=== PATIENT | female | born 1980 | race African-American/Black ===

== ENCOUNTER 2021-09-12 08:29 | Emergency (ER) | payer OTHER ==
[2021-09-12] MEDS ORDERED: IBUPROFEN 600 MG TABLET (FP) PO ONE ×2 (08:44→08:51)
[2021-09-12 08:53] VITALS: BP 130/71; PULSE 82; TEMP 97.9; BMI 53.0
[2021-09-12 09:37] LABS: EPITHELIAL CELLS MANY /hpf
== END 2021-09-12 10:05 | disposition home or self-care (01) ==
LOC: FER 08:29
DX: R10.84 Generalized abdominal pain (principal); D25.9 Leiomyoma of uterus, unspecified; R10.2 Pelvic and perineal pain
CPT/HCPCS: 76830-TC; 81003; 81015; 84703; 99284-25